=== PATIENT | female | born 1995 | race African-American/Black ===

== ENCOUNTER 2016-10-26 20:57 | Inpatient (IN) | payer BC, OTHER ==
--- NOTE | 2016-10-26 22:19 | PCM.LDHP ---
L&D History of Present Illness - General Date of Service: 10/26/16 Admit Problem/Dx: Admission Diagnosis/Problem Admission Diagnosis/Problem Source of Information: Patient History Limitations: Reports: No limitations - History of Present Illness Introduction:: Patient is a 21-year-old at 38 and 1/7 weeks gestation who presents tonight for concerns of labor. States that contractions started around 7 PM. She states they are occurring frequently, but cannot give her timeframe any more specific than that. She rates them as a 10 out of 10. No vaginal bleeding or loss of fluid. Notes good movement. 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 LMP (Approximate): Endocrine/Metabolic History: Reports: Other (see below) (Goiter) - Past Surgical History GI Surgical History: Reports: EGD Social & Family History - Tobacco Use Smoking Status *Q: Never Smoker - Alcohol Use Alcohol Use History: No Days Per Week of Alcohol Use: 0 - Recreational Drug Use Recreational Drug Use: No H&P Review of Systems - Review of Systems: Review Of Systems: See Below General: Reports: no symptoms Pulmonary: Reports: No Symptoms Cardiovascular: Reports: no symptoms Gastrointestinal: Reports: Abdominal pain Genitourinary: Reports: no symptoms Musculoskeletal: Reports: no symptoms Psychiatric: Reports: no symptoms L&D Exam - Exam Exam: See Below - Vital Signs Weight: 95.254 kg - OB Specific Contraction Intensity: Moderate movement: active heart tones: present heart tones per min: 140 Heart Rate (FHR) Variability: Moderate (6-25 bmp) Presentation: Vertex - Babb Score Babb Score Cervix Position: Posterior Babb Score Consistency: Soft Babb Score Effacement: 0-30% Babb Score Dilation: 1-2 cm Babb Score 's Station: -3 Babb Score Total: 3 - Exam General: alert, oriented, cooperative Lungs: Clear to auscultation, Normal respiratory effort Cardiovascular: regular rate, regular rhythm Abdomen: soft Genitourinary: Normal external exam Extremities: normal inspection Skin: warm, dry, intact - Patient Data Lab Results last 24 hrs: Laboratory Results - last 24 hr 10/26/16 Range/Units 21:57 WBC 5.99 (3.98-10.04) K/mm3 RBC 3.86 L (3.98-5.22) M/mm3 Hgb 10.1 L (11.2-15.7) gm/L Hct 30.0 L (34.1-44.9) % MCV 77.7 L (79.4-94.8) fl MCH 26.2 (25.6-32.2) pg MCHC 33.7 (32.2-35.5) g/dl RDW Std Deviation 37.2 (36.4-46.3) fL Plt Count 145 L (182-369) K/mm3 MPV 11.5 (9.4-12.3) fl Result Diagrams: 10/26/16 21:57 10/26/16 21:57 - Problem List (1) 38 weeks gestation of SNOMED Code(s): 33671583 ICD Code: Z3A.38 - 38 WEEKS GESTATION OF Status: Acute Current Visit: Yes Problem List Initiated/Reviewed/Updated: Yes Orders Last 24hrs: Active Orders 24 hr Category Date Time Status ALANINE AMINOTRANSFERASE,ALT [CHEM] Routine Lab 10/26/16 21:57 Received ASPARTATE AMNIOTRANSFERASE,AST [CHEM] Routine Lab 10/26/16 21:57 Received CREATININE W/GFR [CHEM] Routine Lab 10/26/16 21:57 Received TYPE AND SCREEN [BBK] Routine Lab 10/26/16 21:57 Received UA W/MICROSCOPIC [URIN] Routine Lab 10/26/16 21:48 Uncollected Assessment/Plan Comment:: 21-year-old at 38 and one sevenths weeks gestation presents for concerns of labor. Nursing assessed patient and found her to only be 1 cm dilated. On review of tracing and vitals she does however have a few mild range blood pressures and several upper limit of normal blood pressures. We'll proceed with laboratory testing including AST, ALT, CBC, creatinine, and UA. If blood pressures remain mild range or if there are any laboratory abnormalities she would have to stay regardless if she progresses in labor or not. We'll reassess patient in a few hours and then determine plan of course from there. She has otherwise had an uncomplicated and is GBS negative.
[2016-10-27] MEDS ORDERED: Lactated Ringers 1,000 ML ONE (04:02)
[2016-10-27] MEDS ORDERED: Sodium Chloride 0.9% 10 ML Syringe FLUSH PRN (04:07)
[2016-10-27] MEDS: Lactated Ringers 1,000 ML IV SCH ×2 (04:18→06:22)
[2016-10-27] MEDS: Oxytocin/Lactated Ringers 10 UNIT/1,000 ML BAG IV SCH ×3 (04:59→09:48)
--- NOTE | 2016-10-27 07:24 | PCM.PNLD ---
Labor Progress Note - VS & Meds Vital Signs: Last Vital Signs Temp 36.8 C 10/26/16 23:14 Pulse 82 10/26/16 23:14 Resp 22 H 10/26/16 23:14 BP 132/77 10/26/16 23:14 Pulse Ox 99 10/26/16 23:14 Active Medications: Current Medications Lactated Ringer's (Ringers, Lactated) 1,000 mls @ 100 mls/hr IV ASDIRECTED KOKI Last Admin: 10/27/16 06:22 Dose: 250 mls/hr Oxytocin/Lactated Ringer's (Pitocin In Lr 10 Units/1,000 Ml) 10 unit in 1,000 mls @ 12 mls/hr IV TITRATE KOKI; 2 MUNITS/MIN PRN Reason: Protocol Last Titration: 10/27/16 07:14 Dose: 8 munits/min, 48 mls/hr Sodium Chloride (Saline Flush) 10 ml FLUSH ASDIRECTED PRN PRN Reason: Keep Vein Open Discontinued Medications Lactated Ringer's (Ringers, Lactated) Confirm Administered Dose 1,000 mls @ as directed .ROUTE .STK-MED ONE Stop: 10/27/16 04:03 Last Admin: 10/27/16 04:18 Dose: Not Given - Uterine Contractions Uterine Monitoring Mode: External [place] Contraction Intensity: Mild to Moderate Uterine Resting Tone: Soft - Monitoring Monitor Mode: External Ultrasound Heart Rate (FHR) Baseline: 135 Heart Rate (FHR) Variability: Moderate (6-25 bmp) Accelerations: Present, 15x15 Decelerations: Late (isolated) Strip Review: Category II - Labor Progress (Free Text) Labor Progress: Overnight patient's contractions started to space out. Cervix assessed by nursing overnight and she felt continued to be 1 cm dilated and so pitocin started for elevated BP's around 0430. I checked patient around 0700 to attempt carmona bulb placement, but not able to feel cervix at all nor able to visualize with speculum examination. Will continue pitocin for now. Reassess as needed. Continue induction for gestational HTN.
--- NOTE | 2016-10-27 10:35 | PCM.PNLD ---
Labor Progress Note - VS & Meds Vital Signs: Last Vital Signs Temp 36.8 C 10/26/16 23:14 Pulse 82 10/26/16 23:14 Resp 22 H 10/26/16 23:14 BP 132/77 10/26/16 23:14 Pulse Ox 99 10/26/16 23:14 Active Medications: Current Medications Lactated Ringer's (Ringers, Lactated) 1,000 mls @ 100 mls/hr IV ASDIRECTED KOKI Last Admin: 10/27/16 06:22 Dose: 250 mls/hr Oxytocin/Lactated Ringer's (Pitocin In Lr 10 Units/1,000 Ml) 10 unit in 1,000 mls @ 12 mls/hr IV TITRATE KOKI; 2 MUNITS/MIN PRN Reason: Protocol Last Admin: 10/27/16 09:48 Dose: 14 munits/min, 84 mls/hr Sodium Chloride (Saline Flush) 10 ml FLUSH ASDIRECTED PRN PRN Reason: Keep Vein Open Discontinued Medications Lactated Ringer's (Ringers, Lactated) Confirm Administered Dose 1,000 mls @ as directed .ROUTE .STK-MED ONE Stop: 10/27/16 04:03 Last Admin: 10/27/16 04:18 Dose: Not Given - Uterine Contractions Uterine Monitoring Mode: External [place] Contraction Intensity: Moderate Uterine Resting Tone: Soft - Monitoring Monitor Mode: External Ultrasound Heart Rate (FHR) Baseline: 140 Heart Rate (FHR) Variability: Moderate (6-25 bmp) Accelerations: Present, 15x15 Decelerations: Variable Strip Review: Category II - Labor Progress (Free Text) Labor Progress: Called by nursing due to concern that baby had possibly moved to a breech presentation due to FHT's being found higher on abdomen. Bedside US done and still shows baby in vertex presentation. SVE done and baby not engaged at all at this time when previously could be felt through the vaginal tissue. She is currently on 14 of pitocin and while she states very uncomfortable contractions probably only mild-moderate. BP's are normal to mild range. Discussed the above with patient and her mother. Recommend discontinuing pitocin and doing a washout. In 2 hours recommend going to cytotec for cervical ripening. While this will make induction process longer I think maybe has higher chance for success given minimal progress made so far. They both agree as does nursing.
[2016-10-27] MEDS: Misoprostol 25 MCG (1/4 of 100 MCG) Tab VAG SCH ×3 (12:09→19:53)
--- NOTE | 2016-10-27 13:02 | PCM.PREANE ---
Preanesthetic Assessment - Anesthesia/Transfusion/Family Hx Anesthesia History: Prior Anesthesia Without Reaction Transfusion History: No Prior Transfusion(s) - Physical Assessment O2 Sat by Pulse Oximetry: 99 Respiratory Rate: 22 Vital Signs: Last Vital Signs Temp 36.8 C 10/26/16 23:14 Pulse 82 10/26/16 23:14 Resp 22 H 10/26/16 23:14 BP 132/77 10/26/16 23:14 Pulse Ox 99 10/26/16 23:14 Height: 1.57 m Weight: 95.254 kg - Lab Values: Laboratory Last Values WBC 5.99 K/mm3 (3.98-10.04) 10/26/16 21:57 RBC 3.86 M/mm3 (3.98-5.22) L 10/26/16 21:57 Hgb 10.1 gm/L (11.2-15.7) L 10/26/16 21:57 Hct 30.0 % (34.1-44.9) L 10/26/16 21:57 MCV 77.7 fl (79.4-94.8) L 10/26/16 21:57 MCH 26.2 pg (25.6-32.2) 10/26/16 21:57 MCHC 33.7 g/dl (32.2-35.5) 10/26/16 21:57 RDW Std Deviation 37.2 fL (36.4-46.3) 10/26/16 21:57 Plt Count 145 K/mm3 (182-369) L 10/26/16 21:57 MPV 11.5 fl (9.4-12.3) 10/26/16 21:57 Creatinine 0.8 mg/dL (0.55-1.02) 10/26/16 21:57 Est Cr Clr Drug Dosing 86.50 mL/min 10/26/16 21:57 Estimated GFR (MDRD) > 60 mL/min (>60) 10/26/16 21:57 AST 14 U/L (15-37) L 10/26/16 21:57 ALT 18 U/L (14-59) 10/26/16 21:57 Urine Color Yellow (Yellow) 10/26/16 23:57 Urine Appearance Clear (Clear) 10/26/16 23:57 Urine pH 6.5 (5.0-8.0) 10/26/16 23:57 Ur Specific [place] 1.010 (1.005-1.030) 10/26/16 23:57 Urine Protein Negative (Negative) 10/26/16 23:57 Urine Glucose (UA) Negative (Negative) 10/26/16 23:57 Urine Ketones Negative (Negative) 10/26/16 23:57 Urine Occult Blood Trace-lysed (Negative) H 10/26/16 23:57 Urine Nitrite Negative (Negative) 10/26/16 23:57 Urine Bilirubin Negative (Negative) 10/26/16 23:57 Urine Urobilinogen 0.2 (0.2-1.0) 10/26/16 23:57 Ur Leukocyte Esterase Negative (Negative) 10/26/16 23:57 Urine RBC 0-5 /hpf (0-5) 10/26/16 23:57 Urine WBC 0-5 /hpf (0-5) 10/26/16 23:57 Ur Epithelial Cells 0-5 /hpf (0-5) 10/26/16 23:57 Urine Bacteria Few /hpf (FEW) 10/26/16 23:57 Urine Mucus Not seen /hpf (FEW) 10/26/16 23:57 Blood Type O POSITIVE 10/26/16 21:57 Gel Antibody Screen Negative 10/26/16 21:57 - Allergies Allergies/Adverse Reactions: Allergies Allergy/AdvReac Type Severity Reaction Status Date / Time alligator Allergy Hives Uncoded 07/29/15 13:30 Catfish Allergy Rash Uncoded 10/27/16 03:50 metal Allergy Rash Uncoded 07/29/15 13:30 PreAnesthesia Questionnaire 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 History: Reports: 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: Endocrine/Metabolic History: Reports: Other (see below) (Goiter) - Infectious Disease History Infectious Disease History: Reports: None - Past Surgical History GI Surgical History: Reports: EGD - SUBSTANCE USE Smoking Status *Q: Never Smoker Tobacco Use Within Last Twelve Months: No Second Hand Smoke Exposure: No Days Per Week of Alcohol Use: 0 Recreational Drug Use History: No - HOME MEDS Home Medications: Home Meds oxyCODONE HCl/Acetaminophen [Percocet 5-325 mg Tablet] 1 - 2 each PO Q4H PRN # 15 tablet 07/29/15 [Rx] Ferrous Sulfate [Iron] 325 mg PO ASDIRECTED 10/27/16 [History] PNV95/Ferrous Fumarate/FA [ Tablet] 1 each PO DAILY 10/27/16 [History] - CURRENT (IN HOUSE) MEDS Current Meds: Current Medications Lactated Ringer's (Ringers, Lactated) 1,000 mls @ 100 mls/hr IV ASDIRECTED KOKI Last Admin: 10/27/16 06:22 Dose: 250 mls/hr Oxytocin/Lactated Ringer's (Pitocin In Lr 10 Units/1,000 Ml) 10 unit in 1,000 mls @ 12 mls/hr IV TITRATE KOKI; 2 MUNITS/MIN PRN Reason: Protocol Last Admin: 10/27/16 09:48 Dose: 14 munits/min, 84 mls/hr Misoprostol (Cytotec) 25 mcg VAG Q4H KOKI Stop: 10/27/16 23:46 Last Admin: 10/27/16 12:09 Dose: 25 mcg Sodium Chloride (Saline Flush) 10 ml FLUSH ASDIRECTED PRN PRN Reason: Keep Vein Open Discontinued Medications Lactated Ringer's (Ringers, Lactated) Confirm Administered Dose 1,000 mls @ as directed .ROUTE .STK-MED ONE Stop: 10/27/16 04:03 Last Admin: 10/27/16 04:18 Dose: Not Given Preanesthetic Assessment - ANESTHESIA/TRANSFUSION/FAMILY HX Anesthesia/Transfusion History: No Prior Transfusion(s), Prior Anesthesia Type of Anesthesia Reaction: Reports: Unknown Family History of Anesthesia Reaction: No Intubation History: Unknown Type of Transfusion Reactions: Reports: Unknown - REVIEW OF SYSTEMS Constitutional: Reports: no symptoms 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 Respiratory: Reports: no symptoms Cardiovascular: Reports: blood pressure problem (HTN ) GI: Reports: no symptoms Other: Reports: None - PHYSICAL ASSESSMENT O2 Sat by Pulse Oximetry: 99 RR: 22 Vital Signs: Last Vital Signs Temp 36.8 C 10/26/16 23:14 Pulse 82 10/26/16 23:14 Resp 22 H 10/26/16 23:14 BP 132/77 10/26/16 23:14 Pulse Ox 99 10/26/16 23:14 Height: 1.57 m Weight: 95.254 kg NPO Status Date: 10/27/16 NPO Status Time: 12:00 ASA Class: 2 Mental Status: Alert & Oriented x3 Airway Class: Mallampati = 1 Dentition: Reports: Normal Dentition Thyro-Mental Finger Breadths: 3 Mouth Opening Finger Breadths: 3 ROM/Head Extension: Full Respiratory Status: lungs clear to auscultation bilaterally Cardiovascular Status: regular rate & rhythm, normal S1, S2, no murmur, blood pressure WNL - LAB Values: Laboratory Last Values WBC 5.99 K/mm3 (3.98-10.04) 10/26/16 21:57 RBC 3.86 M/mm3 (3.98-5.22) L 10/26/16 21:57 Hgb 10.1 gm/L (11.2-15.7) L 10/26/16 21:57 Hct 30.0 % (34.1-44.9) L 10/26/16 21:57 MCV 77.7 fl (79.4-94.8) L 10/26/16 21:57 MCH 26.2 pg (25.6-32.2) 10/26/16 21:57 MCHC 33.7 g/dl (32.2-35.5) 10/26/16 21:57 RDW Std Deviation 37.2 fL (36.4-46.3) 10/26/16 21:57 Plt Count 145 K/mm3 (182-369) L 10/26/16 21:57 MPV 11.5 fl (9.4-12.3) 10/26/16 21:57 Creatinine 0.8 mg/dL (0.55-1.02) 10/26/16 21:57 Est Cr Clr Drug Dosing 86.50 mL/min 10/26/16 21:57 Estimated GFR (MDRD) > 60 mL/min (>60) 10/26/16 21:57 AST 14 U/L (15-37) L 10/26/16 21:57 ALT 18 U/L (14-59) 10/26/16 21:57 Urine Color Yellow (Yellow) 10/26/16 23:57 Urine Appearance Clear (Clear) 10/26/16 23:57 Urine pH 6.5 (5.0-8.0) 10/26/16 23:57 Ur Specific [place] 1.010 (1.005-1.030) 10/26/16 23:57 Urine Protein Negative (Negative) 10/26/16 23:57 Urine Glucose (UA) Negative (Negative) 10/26/16 23:57 Urine Ketones Negative (Negative) 10/26/16 23:57 Urine Occult Blood Trace-lysed (Negative) H 10/26/16 23:57 Urine Nitrite Negative (Negative) 10/26/16 23:57 Urine Bilirubin Negative (Negative) 10/26/16 23:57 Urine Urobilinogen 0.2 (0.2-1.0) 10/26/16 23:57 Ur Leukocyte Esterase Negative (Negative) 10/26/16 23:57 Urine RBC 0-5 /hpf (0-5) 10/26/16 23:57 Urine WBC 0-5 /hpf (0-5) 10/26/16 23:57 Ur Epithelial Cells 0-5 /hpf (0-5) 10/26/16 23:57 Urine Bacteria Few /hpf (FEW) 10/26/16 23:57 Urine Mucus Not seen /hpf (FEW) 10/26/16 23:57 Blood Type O POSITIVE 10/26/16 21:57 Gel Antibody Screen Negative 10/26/16 21:57 - ALLERGIES Allergies/Adverse Reactions: Allergies Allergy/AdvReac Type Severity Reaction Status Date / Time alligator Allergy Hives Uncoded 07/29/15 13:30 [place] Allergy Rash Uncoded 10/27/16 03:50 metal Allergy Rash Uncoded 07/29/15 13:30 - BLOOD Blood Available: No Product(s) Available: None - ANESTHESIA PLAN Preop Beta José: No Anesthesia Type Planned: Epidural - ACKNOWLEDGEMENTS Pt an Appropriate Candidate for the Planned Anesthesia: Yes Alternatives and Risks of Anesthesia Discussed w Pt/Guardian: Yes Pt/Guardian Understands and Agrees with Anesthesia Plan: Yes
[2016-10-27] MEDS ORDERED: Ondansetron 4 MG/2 ML SDV IVPUSH PRN (13:10)
[2016-10-27] MEDS ORDERED: diphenhydrAMINE 50 MG/ML SDV IVPUSH PRN (13:10)
[2016-10-27] MEDS ORDERED: ePHEDrine 50 MG/ML SDV IVPUSH PRN (13:10)
[2016-10-27] MEDS ORDERED: fentaNYL 100 MCG/2 ML SDV EPIDUR PRN (13:10)
[2016-10-27] MEDS ORDERED: Bupivacaine/fentaNYL/NS 100 ML Bag EPIDUR SCH (13:15)
--- NOTE | 2016-10-27 16:36 | PCM.PNLD ---
Labor Progress Note - VS & Meds Vital Signs: Last Vital Signs Temp 36.8 C 10/26/16 23:14 Pulse 82 10/26/16 23:14 Resp 22 H 10/27/16 13:08 BP 132/77 10/26/16 23:14 Pulse Ox 99 10/27/16 13:08 Active Medications: Current Medications Diphenhydramine HCl (Benadryl) 25 mg IVPUSH Q6H PRN PRN Reason: Pruritis Ephedrine Sulfate (Ephedrine Sulfate) 5 mg IVPUSH ASDIRECTED PRN PRN Reason: Hypotension Fentanyl (Sublimaze) 100 mcg EPIDUR Q3H PRN PRN Reason: Pain Fentanyl/Bupivacaine HCl (Fentanyl/Bupivacaine/Ns 2 Mcg-0.125% 100 Ml) 100 ml EPIDUR ASDIRECTED KOKI Lactated Ringer's (Ringers, Lactated) 1,000 mls @ 100 mls/hr IV ASDIRECTED KOKI Last Admin: 10/27/16 06:22 Dose: 250 mls/hr Oxytocin/Lactated Ringer's (Pitocin In Lr 10 Units/1,000 Ml) 10 unit in 1,000 mls @ 12 mls/hr IV TITRATE KOKI; 2 MUNITS/MIN PRN Reason: Protocol Last Admin: 10/27/16 09:48 Dose: 14 munits/min, 84 mls/hr Misoprostol (Cytotec) 25 mcg VAG Q4H KOKI Stop: 10/27/16 23:46 Last Admin: 10/27/16 12:09 Dose: 25 mcg Ondansetron HCl (Zofran) 4 mg IVPUSH ONETIME PRN PRN Reason: Nausea/Vomiting Sodium Chloride (Saline Flush) 10 ml FLUSH ASDIRECTED PRN PRN Reason: Keep Vein Open Discontinued Medications Lactated Ringer's (Ringers, Lactated) Confirm Administered Dose 1,000 mls @ as directed .ROUTE .STK-MED ONE Stop: 10/27/16 04:03 Last Admin: 10/27/16 04:18 Dose: Not Given - Uterine Contractions Uterine Monitoring Mode: External [place] Contraction Intensity: Moderate Uterine Resting Tone: Soft - Monitoring Monitor Mode: External Ultrasound Heart Rate (FHR) Baseline: 130 Heart Rate (FHR) Variability: Moderate (6-25 bmp) Accelerations: Present, 15x15 Strip Review: Category I - Labor Progress (Free Text) Labor Progress: Patient now feeling more uncomfortable. Rates contractions as a "12/10", but still not able to assess cervix on digital exam. Reviewed options with patient and will proceed with another dose of cytotec as contractions every 5+ minutes. Discussed methods of pain control, but would prefer to delay epidural at this time. She expressed understanding. BP's mostly normal with some mild range. Will assess again in 4 hours or sooner if needed
--- NOTE | 2016-10-27 19:57 | PCM.PNLD ---
Labor Progress Note - VS & Meds Vital Signs: Last Vital Signs Temp 36.8 C 10/26/16 23:14 Pulse 82 10/26/16 23:14 Resp 22 H 10/27/16 13:08 BP 132/77 10/26/16 23:14 Pulse Ox 99 10/27/16 13:08 Active Medications: Current Medications Diphenhydramine HCl (Benadryl) 25 mg IVPUSH Q6H PRN PRN Reason: Pruritis Ephedrine Sulfate (Ephedrine Sulfate) 5 mg IVPUSH ASDIRECTED PRN PRN Reason: Hypotension Fentanyl (Sublimaze) 100 mcg EPIDUR Q3H PRN PRN Reason: Pain Fentanyl/Bupivacaine HCl (Fentanyl/Bupivacaine/Ns 2 Mcg-0.125% 100 Ml) 100 ml EPIDUR ASDIRECTED KOKI Lactated Ringer's (Ringers, Lactated) 1,000 mls @ 100 mls/hr IV ASDIRECTED KOKI Last Admin: 10/27/16 06:22 Dose: 250 mls/hr Oxytocin/Lactated Ringer's (Pitocin In Lr 10 Units/1,000 Ml) 10 unit in 1,000 mls @ 12 mls/hr IV TITRATE KOKI; 2 MUNITS/MIN PRN Reason: Protocol Last Admin: 10/27/16 09:48 Dose: 14 munits/min, 84 mls/hr Ondansetron HCl (Zofran) 4 mg IVPUSH ONETIME PRN PRN Reason: Nausea/Vomiting Sodium Chloride (Saline Flush) 10 ml FLUSH ASDIRECTED PRN PRN Reason: Keep Vein Open Discontinued Medications Lactated Ringer's (Ringers, Lactated) Confirm Administered Dose 1,000 mls @ as directed .ROUTE .STK-MED ONE Stop: 10/27/16 04:03 Last Admin: 10/27/16 04:18 Dose: Not Given Misoprostol (Cytotec) 25 mcg VAG Q4H KOKI Stop: 10/27/16 23:46 Last Admin: 10/27/16 19:53 Dose: Not Given - Uterine Contractions Uterine Monitoring Mode: External [place] Contraction Intensity: Moderate Uterine Resting Tone: Soft - Monitoring Monitor Mode: External Ultrasound Heart Rate (FHR) Baseline: 135 Heart Rate (FHR) Variability: Moderate (6-25 bmp) Accelerations: Present, 15x15 Decelerations: None Strip Review: Category I - Labor Progress (Free Text) Labor Progress: Patient now not feeling very many contractions after 2nd dose of cytotec. Reviewed options with patient. Will move on to pitocin again. Discussed I am not certain why it is taking so long for her body to respond to this induction, but will continue to work towards it. As long as she and baby are safe there is no set time limit on induction. She expressed understanding. BP's this late PM mostly normal range. Epidural as needed.
[2016-10-28] MEDS: Lactated Ringers 1,000 ML IV SCH ×3 (00:47→04:51)
[2016-10-28] MEDS: Oxytocin/Lactated Ringers 10 UNIT/1,000 ML BAG IV SCH (04:49)
--- NOTE | 2016-10-28 07:28 | PCM.PNLD ---
Labor Progress Note - VS & Meds Vital Signs: Last Vital Signs Temp 36.8 C 10/26/16 23:14 Pulse 82 10/26/16 23:14 Resp 22 H 10/27/16 13:08 BP 132/77 10/26/16 23:14 Pulse Ox 99 10/27/16 13:08 Active Medications: Current Medications Diphenhydramine HCl (Benadryl) 25 mg IVPUSH Q6H PRN PRN Reason: Pruritis Ephedrine Sulfate (Ephedrine Sulfate) 5 mg IVPUSH ASDIRECTED PRN PRN Reason: Hypotension Fentanyl (Sublimaze) 100 mcg EPIDUR Q3H PRN PRN Reason: Pain Last Admin: 10/28/16 01:31 Dose: 100 mcg Fentanyl/Bupivacaine HCl (Fentanyl/Bupivacaine/Ns 2 Mcg-0.125% 100 Ml) 100 ml EPIDUR ASDIRECTED KOKI Last Admin: 10/28/16 01:31 Dose: 100 ml Lactated Ringer's (Ringers, Lactated) 1,000 mls @ 100 mls/hr IV ASDIRECTED KOKI Last Admin: 10/28/16 04:51 Dose: 200 mls/hr Oxytocin/Lactated Ringer's (Pitocin In Lr 10 Units/1,000 Ml) 10 unit in 1,000 mls @ 12 mls/hr IV TITRATE KOKI; 2 MUNITS/MIN PRN Reason: Protocol Last Titration: 10/28/16 07:19 Dose: 8 munits/min, 48 mls/hr Ondansetron HCl (Zofran) 4 mg IVPUSH ONETIME PRN PRN Reason: Nausea/Vomiting Sodium Chloride (Saline Flush) 10 ml FLUSH ASDIRECTED PRN PRN Reason: Keep Vein Open Discontinued Medications Lactated Ringer's (Ringers, Lactated) Confirm Administered Dose 1,000 mls @ as directed .ROUTE .STK-MED ONE Stop: 10/27/16 04:03 Last Admin: 10/27/16 04:18 Dose: Not Given Misoprostol (Cytotec) 25 mcg VAG Q4H KOKI Stop: 10/27/16 23:46 Last Admin: 10/27/16 19:53 Dose: Not Given - Uterine Contractions Uterine Monitoring Mode: External [place] Contraction Intensity: Moderate Uterine Resting Tone: Soft - Monitoring Monitor Mode: External Ultrasound Heart Rate (FHR) Baseline: 135 Heart Rate (FHR) Variability: Moderate (6-25 bmp) Accelerations: Present, 15x15 Decelerations: Late (prior to assessment, resolved with position changes ) Strip Review: Category II - Vaginal Exam Dilation (cm): 3 Effacement (Percent): 50 Station: -2 Cervical Position: Midposition - Labor Progress (Free Text) Labor Progress: Patient doing well. Comfortable with epidural. Pitocin at 4. AROM performed with release of large amount of clear fluid. Continue present management. BP' s normal since epidural.
--- NOTE | 2016-10-28 09:40 | PCM.DEL ---
L & D Note - General Info Date of Service: 10/28/16 - Delivery Note Labor: induced by ARM, induced by oxytocin Cervical Ripening Method: Misoprostil Delivery Outcome: Livebirth Delivery Method: Spontaneous Vaginal Delivery Infant Delivery Mode: Spontaneous Presentation: Right Occiput Posterior (ROP) Nuchal cord: present, reduced Anesthesia Type: Epidural Amniotic Fluid Description: Clear Episiotomy Type: None Laceration: 2nd degree, perineal Suture type: vicryl Suture size: 2-0 Placenta: intact, spontaneous Cord: 3 vessels Estimated blood loss: 250 Resuscitation needed: Yes [place]: bulb syringe, stimulated, warmed, blanket used, warmer used Delivery Comments (Free Text/Narrative):: Patient found to be complete and began pushing. With maternal pushing effort head delivered from an ROP presentation. Nuchal cord present and reduced. With gentle downward traction the shoulders and body quickly delivered. placed on maternal abdomen. Cord clamped and cut. Cord blood obtained. Placenta allowed time to separate and then spontaneously expelled. Inspection of the perineum showed a second-degree laceration repaired with a 2-0 Vicryl rapide in the typical fashion - Patient Data Vitals - most recent: Last Vital Signs Temp 36.8 C 10/26/16 23:14 Pulse 82 10/26/16 23:14 Resp 22 H 10/27/16 13:08 BP 132/77 10/26/16 23:14 Pulse Ox 99 10/27/16 13:08 Weight - most recent: 95.254 kg I&O - last 24 hours: Intake & Output 10/27/16 10/28/16 10/28/16 22:59 06:59 14:59 Intake Total 600 Balance 600 Med Orders - Current: Current Medications Diphenhydramine HCl (Benadryl) 25 mg IVPUSH Q6H PRN PRN Reason: Pruritis Ephedrine Sulfate (Ephedrine Sulfate) 5 mg IVPUSH ASDIRECTED PRN PRN Reason: Hypotension Fentanyl (Sublimaze) 100 mcg EPIDUR Q3H PRN PRN Reason: Pain Last Admin: 10/28/16 01:31 Dose: 100 mcg Fentanyl/Bupivacaine HCl (Fentanyl/Bupivacaine/Ns 2 Mcg-0.125% 100 Ml) 100 ml EPIDUR ASDIRECTED KOKI Last Admin: 10/28/16 01:31 Dose: 100 ml Lactated Ringer's (Ringers, Lactated) 1,000 mls @ 100 mls/hr IV ASDIRECTED KOKI Last Admin: 10/28/16 04:51 Dose: 200 mls/hr Oxytocin/Lactated Ringer's (Pitocin In Lr 10 Units/1,000 Ml) 10 unit in 1,000 mls @ 12 mls/hr IV TITRATE KOKI; 2 MUNITS/MIN PRN Reason: Protocol Last Titration: 10/28/16 08:19 Dose: 12 munits/min, 72 mls/hr Ondansetron HCl (Zofran) 4 mg IVPUSH ONETIME PRN PRN Reason: Nausea/Vomiting Sodium Chloride (Saline Flush) 10 ml FLUSH ASDIRECTED PRN PRN Reason: Keep Vein Open Discontinued Medications Lactated Ringer's (Ringers, Lactated) Confirm Administered Dose 1,000 mls @ as directed .ROUTE .STK-MED ONE Stop: 10/27/16 04:03 Last Admin: 10/27/16 04:18 Dose: Not Given Misoprostol (Cytotec) 25 mcg VAG Q4H KOKI Stop: 10/27/16 23:46 Last Admin: 10/27/16 19:53 Dose: Not Given - Problem List & Annotations (1) 38 weeks gestation of SNOMED Code(s): 28628175 Code(s): Z3A.38 - 38 WEEKS GESTATION OF Status: Acute Current Visit: Yes (2) Gestational hypertension SNOMED Code(s): 16302379 Code(s): O13.9 - GESTATIONAL HTN W/O SIGNIFICANT PROTEINURIA, UNSP TRIMESTER Status: Acute Current Visit: Yes Qualifiers: Trimester: third trimester Qualified Code(s): O13.3 - Gestational [ -induced] hypertension without significant proteinuria, third trimester (3) Vaginal delivery SNOMED Code(s): 930549368 Code(s): O80 - ENCOUNTER FOR FULL-TERM UNCOMPLICATED DELIVERY Status: Acute Current Visit: Yes - Problem List Review Problem List Initiated/Reviewed/Updated: Yes - My Orders Last 24 Hours: My Active Orders 10/27/16 Lunch Regular Diet [DIET] - Assessment Assessment:: 21 y/o G2 now P2002 PPD#0 from at 38 3/7 wks after IOL for findings of gestational HTN - Plan Plan:: * Routine cares * Encourage breast feeding * Discharge home in 1-2 days Gestational HTN * BP check in 1-2 weeks after delivery
[2016-10-28] MEDS ORDERED: Acetaminophen 325 MG Tab PO PRN (10:20)
[2016-10-28] MEDS ORDERED: Benzocaine/Menthol 20%-0.5% Spray 56 GM Canister TOP PRN (10:20)
[2016-10-28] MEDS ORDERED: Docusate Sodium 100 MG Cap PO PRN (10:20)
[2016-10-28] MEDS ORDERED: Witch Hazel Medicated Pads 100/Jar TOP PRN (10:20)
[2016-10-28] MEDS ORDERED: Lanolin 100% Cream 7 GM Tube TOP PRN (10:20)
[2016-10-28] MEDS: Ibuprofen 600 MG Tab PO PRN (21:00)
--- NOTE | 2016-10-29 06:45 | PCM.PNPP ---
- General Info Date of Service: 10/29/16 Functional Status: Reports: pain controlled, tolerating diet, ambulating, urinating - Review of Systems General: Reports: No Symptoms Pulmonary: Reports: no symptoms Cardiovascular: Reports: No Symptoms Gastrointestinal: Reports: No symptoms Genitourinary: Reports: no symptoms Musculoskeletal: Reports: no symptoms - Patient Data Vital Signs - most recent: Last Vital Signs Temp 36.6 C 10/29/16 03:49 Pulse 70 10/29/16 03:49 Resp 18 10/29/16 03:49 BP 114/86 10/29/16 03:49 Pulse Ox 100 10/29/16 03:49 Weight - most recent: 95.254 kg I&O - last 24 hours: Intake & Output 10/28/16 10/28/16 10/29/16 14:59 22:59 06:59 Intake Total 120 120 Balance 120 120 Med Orders - Current: Current Medications Acetaminophen (Tylenol) 650 mg PO Q4H PRN PRN Reason: mild pain or fever Benzocaine/Menthol (Dermoplast Pain Relief [place]) 0 gm TOP ASDIRECTED PRN PRN Reason: Perineal Comfort Measure Last Admin: 10/28/16 15:52 Dose: 1 spr Docusate Sodium (Colace) 100 mg PO BID PRN PRN Reason: Constipation Emollient Ointment (Lansinoh Hpa) 0 gm TOP ASDIRECTED PRN PRN Reason: Sore Nipples Ibuprofen (Motrin) 600 mg PO Q4H PRN PRN Reason: Mild pain or fever Last Admin: 10/28/16 21:00 Dose: 600 mg Witch Evy (Tucks) 1 pad TOP ASDIRECTED PRN PRN Reason: Hemorrhoid pain Last Admin: 10/28/16 15:53 Dose: 1 pad Discontinued Medications Diphenhydramine HCl (Benadryl) 25 mg IVPUSH Q6H PRN PRN Reason: Pruritis Ephedrine Sulfate (Ephedrine Sulfate) 5 mg IVPUSH ASDIRECTED PRN PRN Reason: Hypotension Fentanyl (Sublimaze) 100 mcg EPIDUR Q3H PRN PRN Reason: Pain Last Admin: 10/28/16 01:31 Dose: 100 mcg Fentanyl/Bupivacaine HCl (Fentanyl/Bupivacaine/Ns 2 Mcg-0.125% 100 Ml) 100 ml EPIDUR ASDIRECTED KOKI Last Admin: 10/28/16 01:31 Dose: 100 ml Lactated Ringer's (Ringers, Lactated) Confirm Administered Dose 1,000 mls @ as directed .ROUTE .STK-MED ONE Stop: 10/27/16 04:03 Last Admin: 10/27/16 04:18 Dose: Not Given Lactated Ringer's (Ringers, Lactated) 1,000 mls @ 100 mls/hr IV ASDIRECTED KOKI Last Admin: 10/28/16 04:51 Dose: 200 mls/hr Oxytocin/Lactated Ringer's (Pitocin In Lr 10 Units/1,000 Ml) 10 unit in 1,000 mls @ 12 mls/hr IV TITRATE KOKI; 2 MUNITS/MIN PRN Reason: Protocol Last Titration: 10/28/16 08:19 Dose: 12 munits/min, 72 mls/hr Misoprostol (Cytotec) 25 mcg VAG Q4H KOKI Stop: 10/27/16 23:46 Last Admin: 10/27/16 19:53 Dose: Not Given Ondansetron HCl (Zofran) 4 mg IVPUSH ONETIME PRN PRN Reason: Nausea/Vomiting Sodium Chloride (Saline Flush) 10 ml FLUSH ASDIRECTED PRN PRN Reason: Keep Vein Open - Interaction Disposition, : [place] in Room with Family Infant Interaction: Holding Infant Infant Feeding: Breastfed Infant; Nursed Well Support Person: Mother - Recovery Exam Fundal Tone: Firm Fundal Level: At Umbilicus Fundal Placement: Midline Lochia Amount: Small Lochia Color: Rubra/Red Bladder Status: Voiding Urinary Elimination: Voided - Exam General: alert, oriented, cooperative Abdomen: soft, no tenderness Extremities: no edema Skin: warm, dry, intact - Problem List & Annotations (1) 38 weeks gestation of SNOMED Code(s): 66540796 Code(s): Z3A.38 - 38 WEEKS GESTATION OF Status: Acute Current Visit: Yes (2) Gestational hypertension SNOMED Code(s): 13203407 Code(s): O13.9 - GESTATIONAL HTN W/O SIGNIFICANT PROTEINURIA, UNSP TRIMESTER Status: Acute Current Visit: Yes Qualifiers: Trimester: third trimester Qualified Code(s): O13.3 - Gestational [ -induced] hypertension without significant proteinuria, third trimester (3) Vaginal delivery SNOMED Code(s): 551528672 Code(s): O80 - ENCOUNTER FOR FULL-TERM UNCOMPLICATED DELIVERY Status: Acute Current Visit: Yes - Problem List Review Problem List Initiated/Reviewed/Updated: Yes - My Orders Last 24 Hours: My Active Orders 10/28/16 10:20 Activity as Tolerated [RC] Vital Signs [RC] 04,12,20 Acetaminophen [Tylenol] 650 mg PO Q4H PRN Benzocaine/Menthol [Dermoplast Pain Relief [place]] See Dose Instructions TOP ASDIRECTED PRN Docusate Sodium [Colace] 100 mg PO BID PRN Ibuprofen [Motrin] 600 mg PO Q4H PRN Lanolin [Lansinoh HPA] See Dose Instructions TOP ASDIRECTED PRN Witch Evy [Tucks] 1 pad TOP ASDIRECTED PRN Assess Lochia [WOMSER] Per Unit Routine Assess Uterine Involution [WOMSER] Per Unit Routine Breast Pump [WOMSER] Per Unit Routine Heat Therapy [OM.PC] PRN Ice Therapy [OM.PC] Per Unit Routine Perineal Care [OM.PC] Per Unit Routine Peripheral IV Discontinue [OM.PC] Routine Sitz Bath [OM.PC] Per Unit Routine 10/28/16 Lunch Regular Diet [DIET] 10/29/16 06:44 Ready for Discharge [RC] PER UNIT ROUTINE 10/29/16 10:20 Heat Therapy [OM.PC] PRN - Assessment Assessment:: 21 y/o G2 now P2002 PPD#1 from at 38 3/7 wks after IOL for findings of gestational HTN - Plan Plan:: * Routine cares * Encourage breast feeding * Discharge home today Gestational HTN * BP mostly normal with one mild range value overnight * BP check in 1-2 weeks after delivery
--- NOTE | 2016-10-29 06:45 | PCM.DCSUM1 ---
Discharge Summary - Discharge Data Discharge Date: 10/29/16 Discharge Disposition: Home, Self-Care 01 Condition: Good - Discharge Diagnosis/Problem(s) (1) 38 weeks gestation of SNOMED Code(s): 96970446 ICD Code: Z3A.38 - 38 WEEKS GESTATION OF Status: Acute Current Visit: Yes (2) Gestational hypertension SNOMED Code(s): 50949561 ICD Code: O13.9 - GESTATIONAL HTN W/O SIGNIFICANT PROTEINURIA, UNSP TRIMESTER Status: Acute Current Visit: Yes Qualifiers: Trimester: third trimester Qualified Code(s): O13.3 - Gestational [ -induced] hypertension without significant proteinuria, third trimester (3) Vaginal delivery SNOMED Code(s): 399828316 ICD Code: O80 - ENCOUNTER FOR FULL-TERM UNCOMPLICATED DELIVERY Status: Acute Current Visit: Yes - Patient Summary/Data Complications: None Consults: None Recommended Follow-up Testing/Procedures: Follow up in 1-2 weeks for BP check Follow up in 5-6 weeks for check Hospital Course: 21 y/o presented at 38 1/7 wks who presented with concerns of early labor. She was not found to be in labor, but did have intermittently elevated BP's and so was kept for IOL due to gestational HTN. Patient progressed slowly , but did reach complete dilation and undergo a . See delivery note for full details. she did well and was discharged home on PPD#1 - Patient Instructions Diet: Regular Diet as Tolerated Activity: As Tolerated Activity, Other: Pelvic Rest for 6 weeks Driving: May Drive Today Showering/Bathing: May Shower Showering/Bathing, Other: May Bathe Notify Provider of: Fever, Increased Pain, Drainage, Nausea and/or Vomiting - Discharge Plan Home Medications: Home Meds PNV95/Ferrous Fumarate/FA [ Tablet] 1 each PO DAILY 10/27/16 [History] Ibuprofen [IJD: Ibuprofen] 600 mg PO Q4H PRN #0 tablet 10/29/16 [Rx] Referrals: Stefani Hernandez MD [Primary Care Provider] - (1-2 weeks for BP check 5-6 weeks for check ) - Discharge Summary/Plan Comment DC Time >30 min.: No - Patient Data Vitals - Most Recent: Last Vital Signs Temp 36.6 C 10/29/16 03:49 Pulse 70 10/29/16 03:49 Resp 18 10/29/16 03:49 BP 114/86 10/29/16 03:49 Pulse Ox 100 10/29/16 03:49 Weight - Most Recent: 95.254 kg I&O - Last 24 hours: Intake & Output 10/28/16 10/28/16 10/29/16 14:59 22:59 06:59 Intake Total 120 120 Balance 120 120 Med Orders - Current: Current Medications Acetaminophen (Tylenol) 650 mg PO Q4H PRN PRN Reason: mild pain or fever Benzocaine/Menthol (Dermoplast Pain Relief [place]) 0 gm TOP ASDIRECTED PRN PRN Reason: Perineal Comfort Measure Last Admin: 10/28/16 15:52 Dose: 1 spr Docusate Sodium (Colace) 100 mg PO BID PRN PRN Reason: Constipation Emollient Ointment (Lansinoh Hpa) 0 gm TOP ASDIRECTED PRN PRN Reason: Sore Nipples Ibuprofen (Motrin) 600 mg PO Q4H PRN PRN Reason: Mild pain or fever Last Admin: 10/28/16 21:00 Dose: 600 mg Witch Evy (Tucks) 1 pad TOP ASDIRECTED PRN PRN Reason: Hemorrhoid pain Last Admin: 10/28/16 15:53 Dose: 1 pad Discontinued Medications Diphenhydramine HCl (Benadryl) 25 mg IVPUSH Q6H PRN PRN Reason: Pruritis Ephedrine Sulfate (Ephedrine Sulfate) 5 mg IVPUSH ASDIRECTED PRN PRN Reason: Hypotension Fentanyl (Sublimaze) 100 mcg EPIDUR Q3H PRN PRN Reason: Pain Last Admin: 10/28/16 01:31 Dose: 100 mcg Fentanyl/Bupivacaine HCl (Fentanyl/Bupivacaine/Ns 2 Mcg-0.125% 100 Ml) 100 ml EPIDUR ASDIRECTED [facility] Last Admin: 10/28/16 01:31 Dose: 100 ml Lactated Ringer's (Ringers, Lactated) Confirm Administered Dose 1,000 mls @ as directed .ROUTE .STK-MED ONE Stop: 10/27/16 04:03 Last Admin: 10/27/16 04:18 Dose: Not Given Lactated Ringer's (Ringers, Lactated) 1,000 mls @ 100 mls/hr IV ASDIRECTED [facility] Last Admin: 10/28/16 04:51 Dose: 200 mls/hr Oxytocin/Lactated Ringer's (Pitocin In Lr 10 Units/1,000 Ml) 10 unit in 1,000 mls @ 12 mls/hr IV TITRATE KOKI; 2 MUNITS/MIN PRN Reason: Protocol Last Titration: 10/28/16 08:19 Dose: 12 munits/min, 72 mls/hr Misoprostol (Cytotec) 25 mcg VAG Q4H KOKI Stop: 10/27/16 23:46 Last Admin: 10/27/16 19:53 Dose: Not Given Ondansetron HCl (Zofran) 4 mg IVPUSH ONETIME PRN PRN Reason: Nausea/Vomiting Sodium Chloride (Saline Flush) 10 ml FLUSH ASDIRECTED PRN PRN Reason: Keep Vein Open *Q Meaningful Use (DIS) - VTE *Q VTE Criteria *Q: - Stroke *Q Stroke Criteria *Q: - AMI *Q AMI Criteria *Q:
[2016-10-29] MEDS: Ibuprofen 600 MG Tab PO PRN (06:48)
--- NOTE | 2016-10-29 08:49 | PCM48HPAN ---
Post Anesthesia Note - EVALUATION WITHIN 48HRS OF ANESTHETIC Vital Signs in Normal Range: Yes Patient Participated in Evaluation: Yes Respiratory Function Stable: Yes Airway Patent: Yes Cardiovascular Function Stable: Yes Hydration Status Stable: Yes Pain Control Satisfactory: Yes Nausea and Vomiting Control Satisfactory: Yes Mental Status Recovered: Yes
[2016-10-29 14:02] VITALS: BP 127/93
== END 2016-10-29 12:45 | disposition home or self-care (01) | DRG 560 ==
LOC: JD.OB 20:57 → JD.OBCHECK 20:57 → JD.OB 10-27 00:38 → JD.MS 10-28 09:23 → OBSVTOIN 10-28 09:23 → JD.OB 10-28 11:28
PROVIDERS: ADMIT Obstetrics & Gynecology; ATTEND Obstetrics & Gynecology
PROC: 10E0XZZ Delivery of Products of Conception, External Approach (ICD-10-PCS; principal; 2016-10-28)
PROC: 0KQM0ZZ Repair Perineum Muscle, Open Approach (ICD-10-PCS; 2016-10-28)
PROC: 10907ZC Drainage of Amniotic Fluid, Therapeutic from Products of Conception, Via Natural or Artificial Opening (ICD-10-PCS; 2016-10-28)
PROC: 00HU33Z Insertion of Infusion Device into Spinal Canal, Percutaneous Approach (ICD-10-PCS; 2016-10-28)
PROC: 3E0R3CZ (ICD-10-PCS; 2016-10-28)
DX: O13.4 Gestational [pregnancy-induced] hypertension without significant proteinuria, complicating childbirth (principal); O70.1 Second degree perineal laceration during delivery; O69.81X0 Labor and delivery complicated by cord around neck, without compression, not applicable or unspecified; Z3A.38 38 weeks gestation of pregnancy; Z37.0 Single live birth; Z91.013 Allergy to seafood; Z91.048 Other nonmedicinal substance allergy status
CPT/HCPCS: 01967; 36415; 81001; 82565; 84450; 84460; 85027; 86850; 86900; 86901; A9270-GY; J2590; J3010; J7120

== ENCOUNTER 2019-04-12 16:59 | Emergency (ER) | payer BC ==
[2019-04-12 17:10] VITALS: BP 152/103; PULSE 95
[2019-04-12] MEDS ORDERED: Ondansetron 4 MG Tab.DIS PO ONE (18:52)
--- NOTE | 2019-04-12 20:32 | EDM.PDOC ---
ED HPI GENERAL MEDICAL PROBLEM - General Chief Complaint: Genitourinary Problem Stated Complaint: ABNORMAL VAGINAL BLEEDING Time Seen by Provider: 04/12/19 18:10 Source of Information: Reports: Patient History Limitations: Reports: No Limitations - History of Present Illness INITIAL COMMENTS - FREE TEXT/NARRATIVE: 23-year-old female presents for heavy vaginal bleeding. Patient reports she's had a menstrual cycle since March 25. States it has been very heavy and she is having to change her tampon or pad about every half an hour today. She reports associated symptoms of dizziness, lightheadedness and vomiting. No abdominal pain, nausea, dysuria, back pain or syncope. She reports that she is a history of PCOS. She has a nexplanon implant in her arm for the last 2 years. She attempted again with her [employer] provider today, Dr. Hernandez, but was unable to be seen. Instructed to come to the ER. Patient reports she's had heavy vaginal bleeding in the past but never anything this severe. Headache Pain Score (Numeric/FACES): 5 - Related Data Allergies Allergy/AdvReac Type Severity Reaction Status Date / Time alligator Allergy Hives Uncoded 04/12/19 17:10 [place] Allergy Rash Uncoded 04/12/19 17:10 metal Allergy Rash Uncoded 04/12/19 17:10 Home Meds: Home Meds Ibuprofen [IJD: Ibuprofen] 600 mg PO Q4H PRN #0 tablet 10/29/16 [Rx] Past Medical History HEENT History: Reports: Impaired Vision Cardiovascular History: Reports: None Respiratory History: Reports: Asthma Genitourinary History: Reports: None [employer]ER History: Reports: Dysfunctional Uterine Bleeding, Musculoskeletal History: Reports: None Neurological History: Reports: None Psychiatric History: Reports: None Endocrine/Metabolic History: Reports: Obesity/BMI 30+ Hematologic History: Reports: None Immunologic History: Reports: None Oncologic (Cancer) History: Reports: None Dermatologic History: Reports: None - Infectious Disease History Infectious Disease History: Reports: None - Past Surgical History Head Surgeries/Procedures: Reports: None GI Surgical History: Reports: EGD Social & Family History - Family History Family Medical History: Noncontributory - Tobacco Use Smoking Status *Q: Never Smoker - Caffeine Use Caffeine Use: Reports: Coffee Caffeine Use Comment: Occasional - Recreational Drug Use Recreational Drug Use: No ED ROS GENERAL - Review of Systems Review Of Systems: See Below Constitutional: Reports: Chills Cardiovascular: Reports: Lightheadedness GI/Abdominal: Reports: Vomiting. Denies: Abdominal Pain, Nausea : Denies: Dysuria, Pain Musculoskeletal: Denies: Back Pain Neurological: Denies: Syncope ED EXAM, RENAL/ - Physical Exam Exam: See Below Exam Limited By: No Limitations General Appearance: Alert, WD/WN, No Apparent Distress, Obese Ears: Normal External Exam Nose: Normal Inspection Throat/Mouth: Normal Inspection, Normal Voice, No Airway Compromise Respiratory/Chest: No Respiratory Distress, Lungs Clear, Normal Breath Sounds Cardiovascular: Normal Peripheral Pulses, Regular Rate, Rhythm, No Murmur GI/Abdominal: Normal Bowel Sounds, Soft, Non-Tender Neurological: Alert, Oriented, Normal Cognition Psychiatric: Normal Affect, Normal Mood Skin Exam: Warm, Dry, Normal Color Course - Vital Signs Last Recorded V/S: Last Vital Signs Temp 99.7 F 04/12/19 17:07 Pulse 95 04/12/19 17:07 Resp 16 04/12/19 17:07 BP 152/103 H 04/12/19 17:07 Pulse Ox 97 04/12/19 17:07 Orthostatic Blood Pressure [ 125/103 Standing] Orthostatic Blood Pressure [ 131/105 Sitting] Orthostatic Blood Pressure [ 130/84 Supine] - Orders/Labs/Meds Labs: Laboratory Tests 04/12/19 04/12/19 04/12/19 Range/Units 18:30 18:30 19:20 WBC 6.94 (3.98-10.04) K/mm3 RBC 4.82 (3.98-5.22) M/mm3 Hgb 12.5 D (11.2-15.7) gm/dl Hct 38.0 (34.1-44.9) % MCV 78.8 L (79.4-94.8) fl MCH 25.9 (25.6-32.2) pg MCHC 32.9 (32.2-35.5) g/dl RDW Std Deviation 38.0 (36.4-46.3) fL Plt Count 273 D (182-369) K/mm3 MPV 10.1 (9.4-12.3) fl Neut % (Auto) 50.2 (34.0-71.1) % Lymph % (Auto) 41.4 (19.3-51.7) % [place] % (Auto) 6.6 (4.7-12.5) % Eos % (Auto) 1.6 (0.7-5.8) Baso % (Auto) 0.1 (0.1-1.2) % Neut # (Auto) 3.48 (1.56-6.13) K/mm3 Lymph # (Auto) 2.87 (1.18-3.74) K/mm3 [place] # (Auto) 0.46 H (0.24-0.36) K/mm3 Eos # (Auto) 0.11 (0.04-0.36) K/mm3 Baso # (Auto) 0.01 (0.01-0.08) K/mm3 HCG, Qual Negative (NEGATIVE) Urine Color Yellow (Yellow) Urine Appearance Clear (Clear) Urine pH 5.5 (5.0-8.0) Ur Specific [place] 1.025 (1.005-1.030) Urine Protein Trace H (Negative) Urine Glucose (UA) Negative (Negative) Urine Ketones Negative (Negative) Urine Occult Blood 3+ H (Negative) Urine Nitrite Negative (Negative) Urine Bilirubin Negative (Negative) Urine Urobilinogen 0.2 (0.2-1.0) Ur Leukocyte Esterase Negative (Negative) Urine RBC 75-100 H (0-5) /hpf Urine WBC 0-5 (0-5) /hpf Ur Squamous Epith Cells 0-5 (0-5) /hpf Urine Bacteria Few (FEW) /hpf Urine Mucus Few (FEW) /hpf Meds: Medications Discontinued Medications Generic Name Dose Route Start Last Admin Trade Name Wood PRN Reason Stop Dose Admin Ondansetron HCl 4 mg 04/12/19 18:52 04/12/19 18:59 Zofran Odt PO 04/12/19 18:53 4 mg ONETIME ONE Administration - Re-Assessments/Exams Free Text/Narrative Re-Assessment/Exam: 04/12/19 20:30 I reviewed the labs with the patient. Her hemoglobin is within normal limits. I Did offer vaginal exam but this will likely not change anything we will do tonight. 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 Discharge instructions as documented. Departure - Departure Time of Disposition: 20:27 Disposition: Home, Self-Care 01 Condition: Good Clinical Impression: Menorrhagia - Discharge Information *PRESCRIPTION DRUG MONITORING PROGRAM REVIEWED*: No *COPY OF PRESCRIPTION DRUG MONITORING REPORT IN PATIENT [place]: No Instructions: Menorrhagia, [id number] Referrals: Stefani Hernandez MD [Primary Care Provider] - Forms: ED Department Discharge Additional Instructions: Make sure you are drinking plenty of fluids. Follow-up with Dr. Rios this week or early next week. Please return to the ER should your symptoms change or worsen.
== END 2019-04-12 20:39 | disposition home or self-care (01) ==
LOC: JD.ED 16:59
DX: N92.0 Excessive and frequent menstruation with regular cycle (principal); E66.9 Obesity, unspecified; Z91.013 Allergy to seafood; Z91.048 Other nonmedicinal substance allergy status; Z68.41 Body mass index [BMI] 40.0-44.9, adult
CPT/HCPCS: 36415; 81001; 84703; 85025; 99284; A9270; 99283

== ENCOUNTER 2020-12-05 07:08 | Day surgery (SDC) | payer BC ==
--- NOTE | 2020-12-04 10:32 | PCM.PREANE ---
Preanesthetic Assessment - Procedure Proposed Procedure: Right ankle excision removal of cystic lesions - Anesthesia/Transfusion/Family Hx Anesthesia History: Prior Anesthesia Without Reaction Family History of Anesthesia Reaction: No Transfusion History: No Prior Transfusion(s) Intubation History: Unknown - Review of Systems General: No Symptoms Pulmonary: No Symptoms (Asthma-last used inhaler one week ago. (exercise induced)) Cardiovascular: No Symptoms (HTN-controlled) Gastrointestinal: No Symptoms Neurological: No Symptoms, Headache (at night), Tingling (Right foot) Other: Reports: None, Thyroid Problems (History of goiter) - Physical Assessment NPO Status Date: 12/04/20 NPO Status Time: 18:00 Vital Signs: HR: 84 Sat: 97% Temp: 98.6 Resp: 16 B/P: 122/71 Height: 1.57 m Weight: 114 kg ASA Class: 2 Mental Status: Alert & Oriented x3 Airway Class: Mallampati = 2 Dentition: Reports: Normal Dentition, Caries Thyro-Mental Finger Breadths: 3 Mouth Opening Finger Breadths: 3 ROM/Head Extension: Full Lungs: Clear to Auscultation, Normal Respiratory Effort Cardiovascular: Regular Rate, Regular Rhythm, No Murmurs - Lab Values: All labs reviewed and noted and within acceptable ranges to proceed with scheduled procedure. - Allergies Allergies/Adverse Reactions: Allergies Allergy/AdvReac Type Severity Reaction Status Date / Time alligator Allergy Hives Uncoded 12/04/20 12:19 Catfish Allergy Rash Uncoded 12/04/20 12:19 metal Allergy Rash Uncoded 12/04/20 12:19 - Anesthesia Plan Pre-Op Medication Ordered: None - Acknowledgements Anesthesia Type Planned: MAC Pt an Appropriate Candidate for the Planned Anesthesia: Yes Alternatives and Risks of Anesthesia Discussed w Pt/Guardian: Yes Pt/Guardian Understands and Agrees with Anesthesia Plan: Yes PreAnesthesia Questionnaire - Past Health History Medical/Surgical History: Denies Medical/Surgical History HEENT History: Reports: Impaired Vision Cardiovascular History: Reports: None Respiratory History: Reports: Asthma Genitourinary History: Reports: None [employer] History: Reports: Dysfunctional Uterine Bleeding, Musculoskeletal History: Reports: None Neurological History: Reports: None Psychiatric History: Reports: None Endocrine/Metabolic History: Reports: Obesity/BMI 30+ Hematologic History: Reports: None Immunologic History: Reports: None Oncologic (Cancer) History: Reports: None Dermatologic History: Reports: None - Infectious Disease History Infectious Disease History: Reports: None - Past Surgical History Head Surgeries/Procedures: Reports: None GI Surgical History: Reports: EGD - HOME MEDS Home Medications: Home Meds Ibuprofen [IJD: Ibuprofen] 600 mg PO Q4H PRN #0 tablet 10/29/16 [Rx] Acetaminophen/HYDROcodone [[place] 325-5 MG] 1 - 2 tab PO Q6H PRN 12/04/20 [History] Biotin 1 mg PO DAILY 12/04/20 [History] amLODIPine Besylate [Norvasc] 10 mg PO DAILY 12/04/20 [History] levonorgestreL [Mirena] 1 each IU ASDIRECTED 12/04/20 [History] - CURRENT (IN HOUSE) MEDS Current Meds: Current Medications Lactated Ringer's (Ringers, Lactated) 1,000 mls @ 125 mls/hr IV ASDIRECTED KOKI Stop: 12/05/20 23:00 Lidocaine/Sodium Bicarbonate (Lidocaine 1%/Sod Bicarbonate In Ns 8.4% 1 Ml Syringe) 0.25 ml IDERM ONETIME PRN PRN Reason: Prior to IV Start Stop: 12/05/20 18:00 Sodium Chloride (Sodium Chloride 0.9% 10 Ml Syringe) 10 ml FLUSH ASDIRECTED PRN PRN Reason: Keep Vein Open Stop: 12/05/20 18:00
[~2020-12-05 07:08] MED LIST: HYDROmorphone 0.5 MG/0.5 ML Syringe ONE; Lactated Ringers 1,000 ML IV SCH; Lactated Ringers 1,000 ML ONE; Lidocaine 1% 4 ML ONE; Lidocaine 1%/Sod Bicarbonate in NS 8.4% 1 ML Syringe IDERM PRN; Midazolam 1 MG/ML 2 ML SDV ONE; Ondansetron 4 MG/2 ML SDV ONE; Propofol 200 MG/20 ML SDV ONE; Sodium Chloride 0.9% 10 ML Syringe FLUSH PRN; ceFAZolin 1 GM Vial ONE; fentaNYL 100 MCG/2 ML SDV ONE
[2020-12-05] MEDS ORDERED: Bupivacaine 0.5% 30 ML SDV ONE (07:43)
[2020-12-05] MEDS ORDERED: Lidocaine 1% with EPINEPHrine 1:100,000 10 ML MDV ONE (07:43)
[2020-12-05] MEDS ORDERED: Ondansetron 4 MG/2 ML SDV IVPUSH PRN (08:06)
[2020-12-05] MEDS ORDERED: fentaNYL 100 MCG/2 ML SDV IVPUSH PRN (08:06)
[2020-12-05] MEDS ORDERED: HYDROmorphone 0.5 MG/0.5 ML Syringe IVPUSH PRN (08:06)
[2020-12-05] MEDS ORDERED: Albuterol 0.083% 2.5 MG/3 ML Neb Soln NEB PRN (08:06)
[2020-12-05] MEDS ORDERED: diphenhydrAMINE 50 MG/ML SDV IVPUSH PRN (08:06)
[2020-12-05] MEDS ORDERED: ePHEDrine 50 MG/ML SDV IVPUSH PRN (08:06)
[2020-12-05] MEDS ORDERED: Midazolam 1 MG/ML 2 ML SDV IVPUSH PRN (08:06)
[2020-12-05] MEDS ORDERED: Propofol 200 MG/20 ML SDV ONE (08:08)
--- NOTE | 2020-12-05 09:05 | PCM48HPAN ---
Post Anesthesia Note - EVALUATION WITHIN 48HRS OF ANESTHETIC Vital Signs in Normal Range: Yes Patient Participated in Evaluation: Yes Respiratory Function Stable: Yes Airway Patent: Yes Cardiovascular Function Stable: Yes Hydration Status Stable: Yes Pain Control Satisfactory: Yes Nausea and Vomiting Control Satisfactory: Yes Mental Status Recovered: Yes Vital Signs: Last Vital Signs Temp 97.1 12/05/20 0902 Pulse 66 12/05/20 0902 Resp 20 12/05/20 0902 BP 92/61 12/05/20 0902 Pulse Ox 98% 12/05/20 0902
--- NOTE | 2020-12-05 09:06 | PCM.OPNOTE ---
- General Post-Op/Procedure Note Date of Surgery/Procedure: 12/05/20 Operative Procedure(s): Excision of Cystic Lesion, RIGHT ankle Pre Op Diagnosis: 1.) Painful/Symptomatic Cystic Lesion, RIGHT ankle Post-Op Diagnosis: Same Anesthesia Technique: Local, MAC Primary Surgeon: Solitario Dunlap II Anesthesia Provider: Bianca Blevins EBL in mLs: 5 Complications: None Condition: Good Free Text/Narrative:: Patient left the OR for recovery with vital signs stable & vascular status intact, digits 1-5 Right foot/ankle.
[2020-12-05 11:07] VITALS: BP 121/104; PULSE 58
--- NOTE | 2020-12-05 16:09 | OR ---
DATE OF OPERATION: 12/05/2020 SURGEON: Solitario Dunlap II, DPM LOCATION: [facility]. ANESTHESIA: MAC with local block about the right ankle. ANESTHESIA PROVIDER: Bianca Blevins CRNA. HEMOSTASIS: Right pneumatic calf tourniquet 250 mmHg pressure x37 minutes. PREOPERATIVE DIAGNOSIS: Painful symptomatic cystic lesion, right ankle. POSTOPERATIVE DIAGNOSIS: Painful symptomatic cystic lesion, right ankle. OPERATION PERFORMED: Excision, multiloculated cystic lesion, right ankle. DESCRIPTION OF PROCEDURE: Upon arrival and admission to the hospital, the patient was examined and cleared for surgery by the assigned anesthesia provider. IV access was obtained in the preoperative area to which the patient was given prophylactic antibiotics consisting of 2 g of Ancef. The patient was then brought to the OR via gurney and assisted with transfer onto the operating room table in the supine position. The patient was given a combination of sedations and was adequately sedated before receiving 10 mL of a 1:1 mixture 1% lidocaine plain and 0.5% Marcaine plain in the form of a local infiltrative block about the right ankle. Superior to the right ankle, there was a nonsterile pneumatic ankle tourniquet, which was wrapped with cotton padding in preparation for nonsterile pneumatic calf tourniquet, which was then draped with a 1010 drape. The right lower extremity was then prepped and draped in the usual aseptic manner. The right lower extremity would then be elevated and exsanguinated with the use of an Esmarch bandage before inflating the right pneumatic ankle tourniquet to 250 mmHg pressure. Esmarch bandage was removed and the right lower extremity was placed back to the level of the operating room table. Attention was then directed to the anterior-lateral aspect of the right ankle where a controlled depth 4 cm linear incision was created overlying the cystic lesion at the level of the ankle joint. This was a controlled depth skin incision taken down to the level of the subcutaneous structures with care taken to retract the vital neurovascular structures within the area as well as to cauterize and/or ligate all superficial bleeders as deemed necessary. Continuous soft tissue dissection was then taken down to the level of the fascial compartment just below the subcutaneous layer. It was upon releasing this layer that a low-lying muscle belly within the ankle joint and attached to an extensor tendon was, there was noted to be a 3 cm x 2 cm firm subcutaneous cystic lesion consistent with a ganglion cyst. This cystic lesion was then dissected free from its soft tissue attachments and was removed from the wound site in toto. The wound site was then carefully inspected for any further remnants of the cystic lesion and none were noted. The wound was then copiously lavaged with sterile saline solution and the lesion was sent to pathology for gross microscopic evaluation. The wound site would then be closed with 3-0 Vicryl for the deep subcu layer and deep fascial layer while the subcuticular layer was reapproximated with 4-0 Vicryl and the skin was reapproximated with 4-0 nylon in the form of horizontal mattress suture knots. Postoperatively, anesthesia manzanares, the patient received an additional 25 mL of 0.5% Marcaine plain. Dressings were then consisted of Betadine-soaked Adaptic gauze, 4 x 4 gauze, Kerlix, and an Duarte bandage. Upon completion of the surgery, the pneumatic calf tourniquet was deflated and it was noted that digits 1 through 5 of the right lower extremity became pink, indicating normal vascular perfusion had returned. The patient appeared to tolerate the surgery and anesthesia well and left the OR for recovery with her vital signs being stable and vascular status intact to digits 1 through 5 of the right lower extremity. There were no apparent complications in the postoperative anesthesia care unit. The patient received written and oral postop instructions as well as postoperative pain medication. The patient will ambulate partial weightbearing about her right foot and ankle with the aid of a postoperative shoe. The estimated blood loss for this procedure was 5 mL and considered negligible. There were no apparent or obvious complications. ESTIMATED BLOOD LOSS: MMODAL /[id number]
== END 2020-12-05 10:48 | disposition home or self-care (01) ==
LOC: JD.SDS 07:08
PROVIDERS: ATTEND Podiatrist Foot & Ankle Surgery
DX: M79.89 Other specified soft tissue disorders (principal); I10 Essential (primary) hypertension; J45.909 Unspecified asthma, uncomplicated; E66.9 Obesity, unspecified; Z79.899 Other long term (current) drug therapy; Z91.013 Allergy to seafood; Z91.048 Other nonmedicinal substance allergy status
CPT/HCPCS: 27634; J0690; J1170; J2250; J2405; J2704; J3010; J3490; J7120; 01470

== ENCOUNTER 2022-08-31 21:46 | Emergency (ER) | payer SELFPAY ==
[2022-08-31] MEDS ORDERED: Ketorolac 30 MG/ML SDV IM ONE (22:57)
[2022-08-31] MEDS ORDERED: HYDROmorphone 0.5 MG/0.5 ML Syringe IM ONE (22:57)
[2022-08-31 23:23] VITALS: BP 134/72; PULSE 91
== END 2022-08-31 23:35 | disposition home or self-care (01) ==
LOC: JD.ED 21:46
DX: S63.501A Unspecified sprain of right wrist, initial encounter (principal); I10 Essential (primary) hypertension; J45.909 Unspecified asthma, uncomplicated; E66.9 Obesity, unspecified; Z68.41 Body mass index [BMI] 40.0-44.9, adult; Z91.048 Other nonmedicinal substance allergy status; Z79.899 Other long term (current) drug therapy; W50.0XXA Accidental hit or strike by another person, initial encounter; Y93.68 Activity, volleyball (beach) (court)
CPT/HCPCS: 73110; 96372; 99283; J1170; J1885

== ENCOUNTER 2024-03-26 19:54 | Emergency (ER) | payer SELFPAY ==
[2024-03-26] MEDS: Ketorolac 60 MG/2 ML SDV IM ONE (20:48)
[2024-03-26 22:26] VITALS: BP 135/94; PULSE 77
== END 2024-03-26 21:50 | disposition home or self-care (01) ==
LOC: JD.ED 19:54
DX: S93.402A Sprain of unspecified ligament of left ankle, initial encounter (principal); I10 Essential (primary) hypertension; J45.909 Unspecified asthma, uncomplicated; E66.9 Obesity, unspecified; Z79.899 Other long term (current) drug therapy; Z88.8 Allergy status to other drugs, medicaments and biological substances; Z91.048 Other nonmedicinal substance allergy status; Z91.013 Allergy to seafood; Z68.41 Body mass index [BMI] 40.0-44.9, adult; X58.XXXA Exposure to other specified factors, initial encounter; Y93.39 Activity, other involving climbing, rappelling and jumping off
CPT/HCPCS: 73590-26-LT; 73590-LT; 73610-26-LT; 73610-LT; 96372; 99283; J1885

== ENCOUNTER 2024-05-03 20:49 | Emergency (ER) | payer SELFPAY ==
[2024-05-03] MEDS: Azithromycin 250 MG Tab PO ONE (21:41)
[2024-05-03] MEDS: cefTRIAXone 500 MG Vial IM ONE (21:42)
[2024-05-03 22:11] VITALS: BP 138/86; PULSE 78
== END 2024-05-03 22:08 | disposition home or self-care (01) ==
LOC: JD.ED 20:49
DX: Z20.2 Contact with and (suspected) exposure to infections with a predominantly sexual mode of transmission (principal); I10 Essential (primary) hypertension; E66.9 Obesity, unspecified; F17.210 Nicotine dependence, cigarettes, uncomplicated; Z88.8 Allergy status to other drugs, medicaments and biological substances; Z91.013 Allergy to seafood; Z91.048 Other nonmedicinal substance allergy status
CPT/HCPCS: 96372; 99283; A9270-GY; J0696

== ENCOUNTER 2024-06-12 11:41 | Emergency (ER) | payer SELFPAY ==
[2024-06-12] MEDS ORDERED: Sodium Chloride 0.9% 10 ML Syringe FLUSH PRN (12:29)
[2024-06-12] MEDS: Sodium Chloride 0.9% 1,000 ML IV SCH (12:50)
[2024-06-12] MEDS: Ondansetron 4 MG/2 ML SDV IVPUSH ONE (12:50)
[2024-06-12 12:55] LABS: BASOPHILS PERCENT AUTO 0.3 % (0.0-1.0); EOSINOPHILS PERCENT AUTO 0.5 % (0.0-6.0); HEMATOCRIT 41.4 % (37.0-47.0); HEMOGLOBIN 13.8 gm/dl (12.0-16.0); IMMATURE GRAN ABSOLUTE AUTO 0.04 K/mm3 (0.00-0.05); IMMATURE GRAN PERCENT AUTO 0.6 % (0.0-0.4); LYMPHOCYTES ABSOLUTE AUTO 0.7 K/mm3 (1.0-4.8); LYMPHOCYTES PERCENT AUTO 10.6 % (24.0-44.0); MEAN CORPUSCULAR HEMOGLOBIN 26.1 pg (28.0-32.0); MEAN CORPUSCULAR HGB CONC 33.3 g/dl (32.0-36.0); MEAN CORPUSCULAR VOLUME 78.4 fl (83.0-99.0); MEAN PLATELET VOLUME 10.6 fl (9.4-12.3); MONOCYTES ABSOLUTE AUTO 0.3 K/mm3 (0.0-0.8); MONOCYTES PERCENT AUTO 4.6 % (0.0-8.0); NEUTROPHILS ABSOLUTE AUTO 5.2 K/mm3 (1.8-7.7); NEUTROPHILS PERCENT AUTO 83.4 % (41.0-71.0); PLATELET COUNT,PLT 245 K/mm3 (150-400); RED BLOOD CELL COUNT 5.28 M/mm3 (4.10-5.30); WHITE BLOOD CELL COUNT,WBC 6.25 K/mm3 (3.9-11.3)
[2024-06-12 13:15] LABS: ALBUMIN 4.1 g/dl (3.4-5.0); ANION GAP 17.2 (5-15); BILIRUBIN TOTAL 0.5 mg/dL (0.2-1.0); BUN/CREATININE RATIO 17.8 (14-18); C-REACTIVE PROTEIN 0.71 mg/dL (<0.30); CALCIUM 8.9 mg/dL (8.5-10.1); CREATININE 0.9 mg/dL (0.55-1.02); EST CRCL DRUG DOSING (CG) 78.21 mL/min; POTASSIUM,K 4.2 mEq/L (3.5-5.1); PROTEIN TOTAL,TP 8.1 g/dl (6.4-8.2)
[2024-06-12 13:33] LABS: HEMOGLOBIN A1C 5.1 %
[2024-06-12 13:41] LABS: CORONAVIRUS COVID-19 NAA NEGATIVE (NEGATIVE); INFLUENZA A NAA NEGATIVE (NEGATIVE); RESPIRATORY SYNCYTIAL VIR NAA NEGATIVE (NEGATIVE)
[2024-06-12 15:21] VITALS: BP 142/78; PULSE 87
[2024-06-14 21:47] LABS: C PEPTIDE,SERUM 1.9 ng/mL (0.5-3.3)
== END 2024-06-12 15:05 | disposition home or self-care (01) ==
LOC: JD.ED 11:41
DX: E16.2 Hypoglycemia, unspecified (principal); I10 Essential (primary) hypertension; J45.909 Unspecified asthma, uncomplicated; E66.9 Obesity, unspecified; F17.210 Nicotine dependence, cigarettes, uncomplicated; Z91.013 Allergy to seafood; Z91.048 Other nonmedicinal substance allergy status; Z68.41 Body mass index [BMI] 40.0-44.9, adult
CPT/HCPCS: 0241U; 36415; 80053; 82010; 82947; 83036; 83690; 84681; 85025; 86140; 96361; 96374; 99284; J2405; J7030

== ENCOUNTER 2024-08-22 19:41 | Emergency (ER) | payer MEDICAID ==
[2024-08-22 20:20] VITALS: BP 122/93; PULSE 86
[2024-08-22 20:55] LABS: BASOPHILS PERCENT AUTO 0.3 % (0.0-1.0); EOSINOPHILS PERCENT AUTO 0.5 % (0.0-6.0); HEMATOCRIT 32.2 % (37.0-47.0); HEMOGLOBIN 10.9 gm/dl (12.0-16.0); IMMATURE GRAN ABSOLUTE AUTO 0.02 K/mm3 (0.00-0.05); IMMATURE GRAN PERCENT AUTO 0.3 % (0.0-0.4); LYMPHOCYTES ABSOLUTE AUTO 2.2 K/mm3 (1.0-4.8); LYMPHOCYTES PERCENT AUTO 30.4 % (24.0-44.0); MEAN CORPUSCULAR HEMOGLOBIN 26.8 pg (28.0-32.0); MEAN CORPUSCULAR HGB CONC 33.9 g/dl (32.0-36.0); MEAN CORPUSCULAR VOLUME 79.3 fl (83.0-99.0); MEAN PLATELET VOLUME 10.9 fl (9.4-12.3); MONOCYTES ABSOLUTE AUTO 0.4 K/mm3 (0.0-0.8); NEUTROPHILS ABSOLUTE AUTO 4.6 K/mm3 (1.8-7.7); NEUTROPHILS PERCENT AUTO 62.5 % (41.0-71.0); PLATELET COUNT,PLT 198 K/mm3 (150-400); RED BLOOD CELL COUNT 4.06 M/mm3 (4.10-5.30); WHITE BLOOD CELL COUNT,WBC 7.31 K/mm3 (3.9-11.3)
[2024-08-22 21:04] LABS: APPEARANCE,URINE SLT CLOUDY (Clear); BILIRUBIN,URINE NEGATIVE (Negative); COLOR,URINE YELLOW (Yellow); GLUCOSE,URINE NEGATIVE (Negative); KETONES,URINE 1+ (Negative); LEUKOCYTE ESTERASE,URINE NEGATIVE (Negative); NITRITE,URINE NEGATIVE (Negative); OCCULT BLOOD,URINE NEGATIVE (Negative); PROTEIN,URINE NEGATIVE (Negative); UROBILINOGEN,URINE 0.2 (0.2-1.0)
[2024-08-22 21:17] LABS: A/G RATIO 0.8 (1-2); ANION GAP 13.8 (5-15); BILIRUBIN TOTAL 0.2 mg/dL (0.2-1.0); BUN/CREATININE RATIO 17.5 (14-18); CALCIUM 8.6 mg/dL (8.5-10.1); CREATININE 0.8 mg/dL (0.55-1.02); EST CRCL DRUG DOSING (CG) 87.99 mL/min; POTASSIUM,K 3.8 mEq/L (3.5-5.1); PROTEIN TOTAL,TP 6.6 g/dl (6.4-8.2)
== END 2024-08-22 23:00 | disposition home or self-care (01) ==
LOC: JD.ED 19:41
DX: O99.891 Other specified diseases and conditions complicating pregnancy (principal); R10.30 Lower abdominal pain, unspecified; I10 Essential (primary) hypertension; Z79.82 Long term (current) use of aspirin; Z79.899 Other long term (current) drug therapy; Z91.013 Allergy to seafood; Z91.048 Other nonmedicinal substance allergy status; Z3A.14 14 weeks gestation of pregnancy
CPT/HCPCS: 36415; 76817; 76817-26; 80053; 81003; 85025; 99284